=== PATIENT | female | born 1995 | race Caucasian/White ===

== ENCOUNTER 2017-11-08 20:35 | Outpatient (CLI) | payer OTHER, SELFPAY ==
[2017-11-08 20:59] VITALS: BMI 21.9
--- NOTE | 2017-11-09 09:09 | OB.TRI.NOTE ---
History of Present Illness Date of Service: 11/08/17 Was patient seen by the physician?: No Reason For Visit: r/o LABOR Date of Service: 11/08/17 Final JOHN: 01/17/18 Final JOHN Source: LMP Gestational age: 30 Weeks and 1 Days History of Present Illness: 22yo @ 30 wks gestation c/o occasional contractions- was sent from [facility]- has not had PNC with [facility]. Denies Vb, LOF. Allergies No Known Allergies Allergy (Verified 11/08/17 21:01) NST - FHR Rate Baby A Baseline: 135 Variability:: Moderate Accelerations:: 15 x 15 Decelerations:: None NST Reactive:: Yes, Appropriate for gestational age FHR Category:: Category I Uterine Activity:: occasional Impression/Plan 22yo @ 30.1 weeks, NOT IN LABOR 1) vaginal exam unchanged since being checked by boring mill set up operator vertical last visit 1cm/thick/high 2) dc home f/u with [facility] or [facility] if desired
--- NOTE | 2017-11-09 09:12 | OB.TRI.HP_ITS ---
History of Present Illness Date of Service: 11/08/17 Was patient seen by the physician?: No Reason For Visit: r/o LABOR Date of Service: 11/08/17 Final JOHN: 01/17/18 Final JOHN Source: LMP Gestational age: 30 Weeks and 1 Days History of Present Illness: 22yo @ 30 wks gestation c/o occasional contractions- was sent from [facility]- has not had PNC with [facility]. Denies Vb, LOF. Allergies No Known Allergies Allergy (Verified 11/08/17 21:01) NST - FHR Rate Baby A Baseline: 135 Variability:: Moderate Accelerations:: 15 x 15 Decelerations:: None NST Reactive:: Yes, Appropriate for gestational age FHR Category:: Category I Uterine Activity:: occasional Impression/Plan 22yo @ 30.1 weeks, NOT IN LABOR 1) vaginal exam unchanged since being checked by rip saw operator last visit 1cm/thick/ high 2) dc home f/u with [facility] or [facility] if desired
== END 2017-11-08 23:00 | disposition home or self-care (01) ==
LOC: WPOUT 20:46 → WP 20:46
PROVIDERS: Family Provider Family Medicine; PCP Family Medicine; Visit Provider Obstetrics & Gynecology
DX: O47.03 False labor before 37 completed weeks of gestation, third trimester (principal); Z3A.30 30 weeks gestation of pregnancy
CPT/HCPCS: 59025; 59050; 99218; G0378

== ENCOUNTER 2017-12-17 09:50 | Inpatient (IN) | payer SELFPAY ==
[2017-12-17 10:19] VITALS: BMI 23.5
[2017-12-17] MEDS: Lactated Ringers 1,000 ML 50 ML IV (10:30)
[2017-12-17 10:51] LABS: Hematocrit 38.7 % (37-47); Mean Corp Hgb Conc 33.6 g/gl (32-36); Mean Corpuscular Hgb 27.4 pg (27.0-32.0); Mean Corpuscular Volume 81.6 fL (81-99); Mean Platelet Vol. 9.2 fl (6.2-12.0); Platelet Count 253 K/mm3 (150-450); RBC Distribution Width SD 42.1 fl (35.1-43.9); Red Blood Count 4.74 M/mm3 (4.2-5.4); White Blood Count 11.5 K/mm3 (4.4-11.0)
[2017-12-17 10:54] LABS: Scan Indicated on CBC? Y/N NO
[2017-12-17] MEDS: Oxytocin 30 units/NS 500 ml 30 UNITS/500 ML IV.SOLN 334 UNITS IV (12:35)
[2017-12-17] MEDS: Oxytocin 30 units/NS 500 ml 30 UNITS/500 ML IV.SOLN 167 UNITS IV (13:05)
[2017-12-17 13:25] LABS: Group B Strep DNA By PCR Negative (Negative)
[2017-12-17 13:26] LABS: Internal Control PASS; Probe Check PASS; Specimen Processing Control PASS
[2017-12-17 14:39] VITALS: BP 128/67; PULSE 86; RESP 16; TEMP 36.7; O2SAT 99
[2017-12-17 16:45] VITALS: BP 122/69; PULSE 98; RESP 15; TEMP 37; O2SAT 97
--- NOTE | 2017-12-17 18:44 | PCM.HP.OB ---
- Problem List (1) labor Status: Acute (2) Abnormal ultrasonic finding on screening of mother Status: Acute History Date of Admission: 12/17/17 Final JOHN: 01/17/18 Final JOHN Source: LMP Gestational age: 35 Weeks and 4 Days History of this : This is a 22 year-old, , at 35 weeks 4 DAYS gestational age presents with PTL. she had an abnormal ultrasound this that had echogenic bowel and bilateral mild hydronephrosis but otherwise had a normal . she has been seen at [facility]. Allergies No Known Allergies Allergy (Verified 11/08/17 21:01) Home Medications: Home Medications Vit Calc,Iron,Folic [ Vitamins] 12/17/17 Smoking Status: Never smoker Alcohol: None Number of Fetus(es): 1 Heart Tracin moderate vairbility reactive no decels cat I tracing TOCO Analysis: q 2-4 History Past Pregnancies: Past Pregnancies Delivery Date Name GA/Weeks Outcome Route Weight Gender Labor Length Anesthesia Delivery Location Provider FOB 39 term male Labs: Mom's Microbiology 12/17/17 Unknown Genital vaginal Group B Streptococcus Culture - Pending Mom's Problem List Problem Status Onset Code labor Acute O60.00 Abnormal ultrasonic finding on screening of mother Acute O28.3 Mom's Labs & Results 12/17/17 12/17/17 12/17/17 10:15 10:30 10:30 WBC 11.5 H RBC 4.74 Hgb 13.0 Hct 38.7 MCV 81.6 MCH 27.4 MCHC 33.6 RDW 14.0 RDW Differential 42.1 Plt Count 253 MPV 9.2 Chlam trachomat DNA PCR Pending N.gonorrhoeae DNA (PCR) Pending Group B Strep DNA Negative Specimen Comment Not Reportable Blood Type AB POSITIVE Antibody Screen NEGATIVE Course Did the patient receive Yes care? Labs Blood Type: AB RH: POSITIVE Rubella status Immune HbSAg Negative Date Done: 05/14/17 Chlamydia Not Done Gonorrhea Not Done HIV/AIDS Non-Reactive Group B Strep: Collected on Admission Other Lab Procedures/Results/ Penicillan ordered Comments: Current Obstetrical History Gestational Diabetes No Incompetent Cervix No Infertility No IUGR No Macrosomia No Hypertension/Pre-eclampsia No Placenta Previa/Abruption No PTL/PROM No Uterine anomaly No Oligohydramnios No Polyhydramnios No Past Medical History Asthma No Diabetes No Hypertension No Heart disease No Mitral valve prolapse No Neurologic/Seizure disorder/ Yes Migraines Kidney disease No Liver disease No Varicosities Yes Clotting disorders/Hx of DVT No Thyroid Dysfunction No Other medical diseases No Psychiatric disorders No Major trauma Yes: possible concussion at 9 yrs old Abnormal PAP smear No Sleep apnea No Mammogram in the last 2 years Yes: August 2017 Social History Marital Status: Alleged father Hansel Wolf Smoking No Smoking Status Never smoker Expected Delivery Method: Spontaneous Vaginal Review of Systems Constitutional: Denies: Fever, Malaise Eyes: Denies: Blurred vision, Vision Change HEENT: Denies: Head Aches, Visual Changes Cardiovascular: Denies: Chest Pain, Palpitations Respiratory: Denies: Cough, Shortness of Breath, Wheezing Gastrointestinal: Denies: Abdominal Pain, Diarrhea, Nausea, Vomiting Genitourinary: Denies: Dysuria, Hematuria Musculoskeletal: Denies: Joint Pain, Muscle pain Skin: Denies: Lesions, Rash Neurological: Denies: Blurred vision, Focal weakness, Headaches Psychiatric: Denies: Anxiety, Depression Endocrine: Denies: Heat/ Cold Intolerance Hematologic/ Lymphatic: Denies: Easy Bruising, Easy Bleeding Physical Exam Vitals: Vital Signs Temp Pulse Resp BP Pulse Ox 98.6 F 98 15 122/69 H 97 12/17/17 16:45 12/17/17 16:45 12/17/17 16:45 12/17/17 16:45 12/17/17 16:45 General: Alert, Cooperative, No apparent distress HEENT: Atraumatic, Normocephalic. Negative for: Thyromegaly, Lymphadenopathy Cardiovascular: Regular rate Lungs: Normal air movement Abdomen: Soft, Non Tender, Gravid Neurological: Deep Tendon Reflexes 2+/4 and Symmetrical, Neuro grossly intact. Negative for: Clonus GEAR CUTTER: Normal external genitalia. Negative for: Vulvar lesions Estimated gestational size: Appropriate for gestational size Presentation: Cephalic Cervix Dilation (cm): 5.5 Assessment/Plan All Active Problems labor (Acute) Abnormal ultrasonic finding on screening of mother (Acute) This is a 22 year-old, G2P!, at 35 weeks 4d gestational age presents IAL ptl exp mgt. arom clear. amp for gbs prophylaxis
--- NOTE | 2017-12-17 19:05 | PCM.OB.VAG ---
- Problem List (1) labor Status: Acute (2) Abnormal ultrasonic finding on screening of mother Status: Acute Vaginal Delivery Maternal Presentation: Active Labor ptl presented IAL Amniotic Membrane Rupture Type: Spontaneous at home Amniotic Fluid Description: Clear Final JOHN: 01/17/18 Gestational age: 35 Weeks and 4 Days Date of Procedure: 12/17/17 Pre-Operative Diagnosis: ptl Post-Operative Diagnosis: ptd Surgery/ Procedure Performed: Spontaneous Vaginal Delivery Type of Anesthesia: None Description of Procedure: Patient began pushing and delivered the head in the TERRANCE presentation. The head was delivered atraumatically. The anterior and posterior shoulders delivered without complication followed by the rest of the and the was placed on the maternal abdomen. Delayed cord clamping was employed for approximately 60 seconds. Cord was clamped and cut and gentle traction was applied to the cord and the placenta delivered spontaneously immediately following it was noted to be intact with three-vessel cord. The perineum and vagina were inspected and noted to have no laceration. EBL was 100 cc. Patient and infant tolerated delivery well. Presentation: TERRANCE Placental Delivery Description: Spontaneous Placenta Disposition: [facility] Cord Entanglement: None Estimated Blood Loss: 100 Infant A gender: Male (1 minute): 8 - wt 5 12 ounces (5 minute): 9 Episiotomy Description: None Laceration: None Medications given after delivery: IV Pitocin Complications: None
[2017-12-17 19:50] VITALS: BP 131/75; PULSE 80; RESP 18; TEMP 37.2
[2017-12-17] MEDS: Acetaminophen 500 MG Tablet 1000 MG PO (19:56)
[2017-12-18] VITALS: BP 110/65; PULSE 80; RESP 16; TEMP 37
[2017-12-18] MEDS: Acetaminophen 500 MG Tablet 1000 MG PO (03:17)
[2017-12-18 03:20] VITALS: BP 110/60; PULSE 80; RESP 16; TEMP 36.8
[2017-12-18 05:28] LABS: Chlamydia Trachomatis by PCR Negative (Negative); Neisserai gonorrhoeae by PCR Negative (Negative); Probe Check PASS; Sample Adequacy Control PASS; Specimen Processing Control PASS
[2017-12-18 08:45] VITALS: BP 122/68; PULSE 82; RESP 24; TEMP 36.4; O2SAT 98
[2017-12-18 14:20] VITALS: BP 115/68; PULSE 79; TEMP 36.6; O2SAT 98
[2017-12-18 20:55] VITALS: BP 119/69; PULSE 95; RESP 18; TEMP 36.4; O2SAT 97
--- NOTE | 2017-12-18 21:20 | PCM.PN.OB ---
Patient Problems: Active and Suspected Problems labor (Acute) Abnormal ultrasonic finding on screening of mother (Acute) Subjective: doing well no complaints - Physical Exam General: Alert, Oriented x3 Vital Signs Temp Pulse Resp BP Pulse Ox 97.8 F 79 24 H 115/68 98 12/18/17 14:20 12/18/17 14:20 12/18/17 08:45 12/18/17 14:20 12/18/17 14:20 Oxygen Delivery Method Room Air Weight: 132 lb 15.02 oz Body Mass Index (BMI) 23.5 Intake and Output for Last 24 Hours 12/16/17 12/17/17 12/18/17 23:59 23:59 23:59 Output Total 750 / 750 Balance -750 / -750 Microbiology Past 72 Hours 12/17/17 Unknown Group B Streptococcus Culture - Preliminary Genital vaginal Laboratory Tests Past 24 Hrs 12/17/17 10:15 Chlam trachomat DNA PCR Negative N.gonorrhoeae DNA (PCR) Negative Medical Necessity - Tobacco Use Smoking Status: Never smoker Assessment/Plan All Active Problems labor (Acute) Abnormal ultrasonic finding on screening of mother (Acute) s/p PPD # 1 1. routine post delivery care 2. breast feeding- support given 3. rh positive
--- NOTE | 2017-12-19 01:30 | NURSING ---
Infant HR and Pulse ox dropped into 60s when in nursery for carseat challenge. Notified by nursery RN, apron trimmer aware. to remain in nursery to be monitored. Made pt aware of plan at this time.
[2017-12-19 02:40] VITALS: BP 118/65; PULSE 62; RESP 18; TEMP 36.4; O2SAT 98
--- NOTE | 2017-12-19 08:22 | PCM.PN.OB ---
Patient Problems: Active and Suspected Problems labor (Acute) Abnormal ultrasonic finding on screening of mother (Acute) Subjective: NO SOB, CP. Doing well. Pain controlled-OTC meds - Physical Exam General: Alert, Oriented x3 Abdomen: Soft, Non Tender, - - FF below U Vital Signs Temp Pulse Resp BP Pulse Ox 97.5 F L 62 18 118/65 98 12/19/17 02:40 12/19/17 02:40 12/19/17 02:40 12/19/17 02:40 12/19/17 02:40 Oxygen Delivery Method Room Air Weight: 132 lb 15.02 oz Body Mass Index (BMI) 23.5 Intake and Output for Last 24 Hours 12/17/17 12/18/17 12/19/17 23:59 23:59 23:59 Output Total 750 / 750 Balance -750 / -750 Microbiology Past 72 Hours 12/17/17 Unknown Group B Streptococcus Culture - Preliminary Genital vaginal Medical Necessity - Tobacco Use Smoking Status: Never smoker Assessment/Plan All Active Problems labor (Acute) Abnormal ultrasonic finding on screening of mother (Acute) Routine care Baby special care-DC hotel status today.
--- NOTE | 2017-12-19 08:24 | PCM.DCVAG ---
Additional Instructions: If you experience any of the following, contact your healthcare provider. Bleeding that soaks a pad every hour for 2 hours Fever 100.4 or higher Unrelieved incision or abdominal pain Swelling, redness, discharge or bleeding from your incision or episiotomy site Your incision begins to separate Problems urinating (including inability to urinate or burning while urinating). Visual changes Severe headache Flu-like symptoms Pain or redness in one of both of your breasts Pain, warmth, tenderness or swelling in your legs, especially the calf area Frequent nausea and vomiting Symptoms of depression or anxiety If you experience any of the following, call 911 or go to the nearest Emergency Room. Chest pain Problems breathing Seizure activity Partial or complete paralysis of a body part, slurred speech, weakness or drooping of the face, or a sudden inability to walk or hold your balance Allergies/Adverse Reactions: Allergies No Known Allergies Allergy (Verified 11/08/17 21:01) Medications to take at Discharge Vit Calc,Iron,Folic [ Vitamins] 12/17/17 Primary Care Physician: Harpreet Coleman DO [Primary Care Provider] - Test Results: Test results from this visit will be discussed in further detail at your follow-up appointment, if applicable.
[2017-12-19 09:35] VITALS: BP 121/69; PULSE 93; RESP 20; TEMP 36.6; O2SAT 96
[2017-12-19 15:15] VITALS: BP 122/78; PULSE 98; TEMP 36.6; O2SAT 97
== END 2017-12-19 18:00 | disposition home or self-care (01) | DRG 775 ==
LOC: WPOUT 09:50 → WP 12:36
PROVIDERS: Admitting Provider Obstetrics & Gynecology; Family Provider Family Medicine; PCP Family Medicine; Visit Provider Obstetrics & Gynecology
DX: O60.14X0 Preterm labor third trimester with preterm delivery third trimester, not applicable or unspecified (principal); O42.013 Preterm premature rupture of membranes, onset of labor within 24 hours of rupture, third trimester; O28.3 Abnormal ultrasonic finding on antenatal screening of mother; Z3A.35 35 weeks gestation of pregnancy; Z37.0 Single live birth
CPT/HCPCS: 59025; 59050; 85027; 86850; 86900; 87081; 87491; 87591; 87653; 99218; J7120; G0378

== ENCOUNTER → 2021-03-09 14:28 | Outpatient (CLI) | payer OTHER, SELFPAY | PROVIDERS: PCP Family Medicine; Referring Provider Obstetrics & Gynecology; Visit Provider Obstetrics & Gynecology | DX: R69 Illness, unspecified (principal) | CPT/HCPCS: 36415; 86762 ==

== ENCOUNTER → 2021-03-23 12:24 | Outpatient (CLI) | payer SELFPAY, OTHER ==
--- NOTE | 2021-03-23 12:28 | US_ITS ---
STUDY: SECOND AND THIRD TRIMESTER OBSTETRICAL ULTRASOUND - LIMITED REASON FOR EXAM: Female, 26 years old growth LMP: 07/29/2020. PRIOR ULTRASOUND: None. TECHNIQUE: Transabdominal TECHNICAL QUALITY: Adequate. FINDINGS: There is a single intrauterine fetus. The fetus is in a cephalic presentation. There is demonstrated cardiac activity with a heart rate of 140 bpm. There is a normal amniotic fluid volume. The largest amniotic fluid pocket measures 5.6 cm. The amniotic fluid index (MIGUEL ANGEL) is 15.4 cm. The placenta is anterior in location and is not low lying. There are Grade 1 placental changes. The cervix measures 3.2 cm in length. BIOMETRY: BPD: 8.4 cm: 33 weeks, 5 days HC: 30.4 cm: 33 weeks, 5 days AC: 30.7 cm: 34 weeks, 4 days FL: 6.4 cm: 33 weeks, 0 days Age by LMP: 33 weeks, 6 days. JOHN by LMP: 05/05/2021. age by current US: 33 weeks, 2 days. JOHN by current US: 05/09/2021. Estimated weight: 2376 grams, +/- 356 grams, 54 percentile. US/OB Limited With Biometrics IMPRESSION: Single live intrauterine gestation with a mean gestational age of 33 weeks and 2 days. Electronically Signed: Bud Dalton MD at 12:42 EST , Service support ,
== END ==
PROVIDERS: PCP Family Medicine; Referring Provider Obstetrics & Gynecology; Visit Provider Obstetrics & Gynecology
DX: O09.30 Supervision of pregnancy with insufficient antenatal care, unspecified trimester (principal); Z3A.00 Weeks of gestation of pregnancy not specified
CPT/HCPCS: 76816

== ENCOUNTER → 2021-04-12 | Outpatient (CLI) | payer SELFPAY | END | disposition home or self-care (01) | LOC: LABSPEC 04-16 06:42 | PROVIDERS: PCP Family Medicine; Referring Provider Obstetrics & Gynecology; Visit Provider Obstetrics & Gynecology | DX: O09.90 Supervision of high risk pregnancy, unspecified, unspecified trimester (principal); Z3A.00 Weeks of gestation of pregnancy not specified | CPT/HCPCS: 87081 ==

== ENCOUNTER 2021-04-27 14:45 | Outpatient (CLI) | payer OTHER, SELFPAY ==
[2021-04-27] VITALS (8 sets, daily range): BP systolic 123–135; BP diastolic 67–80; PULSE 78–92; TEMP 36.7; BMI 27.3
[2021-04-27 15:16] LABS: Hemoglobin 12.7 g/dL (12.0-15.0); Mean Corp Hgb Conc 34.3 g/dL (32-36); Mean Corpuscular Hgb 29.2 pg (27.0-32.0); Mean Corpuscular Volume 85.1 fL (81-99); Mean Platelet Vol. 9.1 fl (6.2-12.0); Platelet Count 307 K/mm3 (150-450); RBC Distribution Width CV 14.1 % (11.6-14.6); RBC Distribution Width SD 43.9 fl (35.1-43.9); Red Blood Count 4.35 M/mm3 (4.2-5.4)
[2021-04-27 15:25] LABS: Protein, Urine (Random) < 6.0 mg/dL (<11.9); Protein:Creat Ratio 305 mg/g CRE (0-200)
[2021-04-27 15:32] LABS: AST(SGOT) 21 U/L (15-37); Alanine Aminotransfer ALT/SGPT 26 U/L (13-56); Creatinine, Serum 0.63 mg/dL (0.55-1.02); EST Glomerular Filtration Rate 121 mL/min (>60); Est Glom Filt Rate - Afr Amer 147 mL/min (>60); Uric Acid 4.7 mg/dL (2.6-6.0)
--- NOTE | 2021-04-27 17:06 | OB.TRI.HP_ITS ---
HPI - General HPI Narrative LUDIVINA MARIO, is a 26 @ 38 weeks 6 days who was sent to l&D due to some elevated blood pressures in the office. She denies headaches, blurry vision or epigastric pain. She has been on L&D now for a few hours and bp's are normal Maternal Data Information JOHN Calculator Estimated Delivery Date Method Current WG Current Estimate 05/05/21 LMP (Certain) 38w 6d PFSH PFSH Home Medications prenat.vits,festus,[id number] [ Vitamins] 12/17/17 [History Last Taken 12/16/17 21:00] B12 04/27/21 [History Last Taken Unknown] Blodgett 3 04/27/21 [History Last Taken Unknown] Vitamin D3 04/27/21 [History Last Taken Unknown] calcium 04/27/21 [History Last Taken Unknown] vitamin E 04/27/21 [History Last Taken Unknown] Allergy/AdvReac Type Severity Reaction Status Date / Time gluten Allergy Intermediate Other Verified 04/27/21 15:20 Family History Mother Hypertension Phlebitis Varicosities of leg Uncle Parkinson disease Social History Smoking Status: Never smoker alcohol intake: never substance use type: does not use additional social history: - Hansel History 3 Elective abortions Hx Para 2 Spontaneous abortions Hx # Term Pregnancies 1 Ectopic pregnancies Hx # Pregnancies 1 Multiple births # of living children 2 Past Pregnancies Del. Date Name GA/Weeks Outcome Route Bth Weight Infant Gen Labor Lgth Anesthesia [facility] Provider FOB 12/02/16 Jarred 39 live - full term 7lbs 9oz 15.5 hour s none 12/17/17 Juan 35 live - 5lbs 12oz Male 6 hours no ne [facility] [place] Delivery Date: 12/02/16 2 degree tear Lidia Batista Delivery Date: 12/17/17 PTL. abnormal US this - echogenic bowel & B/L mild hydronephrosis but otherwise normal ; Baby in NICU x3 weeks Lidia Batista Visit Details Expected Delivery Route/Plan Labor Preferences- CB/BF classes: [] labor support person: [] labor intervention preferences: [] pain management options preferred: [] cut cord/dad catch: [] : [] PP control planned: [] discussed possible routes of delivery and associated risks: [] special requests: [] Plans Covid status: [] Flu vaccine: [] Tdap vaccine: [] Rhogam: [] LARC form signed: [] Problem list reviewed and updated with the most current plan of care details and appropriate orders placed. Relevant counseling for the gestational age provided. Continue routine care and follow up unless otherwise noted in visit notes/problem list details OB Flowsheet Initial Weight: Not Recorded Date -?-?-?-?-?-?-?-?-?-?-?-?- EGA Weight BP Urine Prot -?-?-?-?-?-?-?-?-?-?-?-?- Glucose FHR FuHt Pres Dilation -?-?-?-?-?-?-?-?-?-?-?-?- Effaced St Visit Note 03/09/21 -?-?-?-?-?-?-?-?-?-?-?-?- 31w 6d 140 lb 2 oz 130/68 -?-?-?-?-?-?-?-?-?-?-?-?- 32 -?-?-?-?-?-?-?-?-?-?-?-?- JV- new transfer [facility]. has 20 week ultrasound that is consistent with LMP. john is 05/05/2021. normal labs, needs rubella and ordering growth scan 03/23/21 -?-?-?-?-?-?-?-?-?-?-?-?- 33w 6d 149 lb 128/72 -?-?-?-?-?-?-?-?-?-?-?-?- 33 0 -?-?-?-?-?-?-?-?-?-?-?-?- JV- no lof, vagi nal bleeding, or dec fm. pt has erythema and discharge on exam consistent with yeast .she is having irregular mild contractions rx for diflucan sent to pharmacy. she is still using progesterone cream. uncertain of effectiveness at this time 04/06/21 -?-?-?-?-?-?-?-?-?-?-?-?- 35w 6d 157 lb 2 oz 126/78 Nega tive -?-?-?-?-?-?-?-?-?-?-?-?- Negative 137 35 Cephalic 1 -?-?-?-?-?-?-?-?-?-?-?-?- 50 -3 JV- pt is still having infrequent contractions. ptl precautions discussed 04/12/21 -?-?-?-?-?-?-?-?-?-?-?-?- 36w 5d 158 lb 6 oz 138/80 Nega tive -?-?-?-?-?-?-?-?-?-?-?-?- Negative 143 37 Cephalic 1 -?-?-?-?-?-?-?-?-?-?-?-?- 50 -2 JV- bedsid e ultrasound today to confirm normal leonard (17), vtx. GBS collected 04/19/21 -?-?-?-?-?-?-?-?-?-?-?-?- 37w 5d 162 lb 6 oz 132/68 Nega tive -?-?-?-?-?-?-?-?-?-?-?-?- Negative 151 38 Cephalic 1 -?-?-?-?-?-?-?-?-?-?--?-?- 50 -2 -No Vb, LOF. No reg CTX. Good FM. 04/27/21 -?-?-?-?-?-?-?-?-?-?-?-?- 38w 6d 164 lb 8 oz 159/86 Nega tive -?-?-?-?-?-?-?-?-?-?-?-?- Negative 145 39 Cephalic -?-?-?-?-?-?-?-?-?-?-?-?- JV- no blurry v ision, headache, RUQ pain, or epigastric pain. pt states that she does have some head pressure and feels uncomfortable due to only. Sending to l&D for monitoring and PIH labs. 04/27/21 -?-?-?-?-?-?-?-?-?-?-?-?- 38w 6d 164 lb 7.437 oz 135/ 77 130/77 131/80 128/67 128/72 128/69 123/69 -?-?-?-?-?-?-?-?-?-?-?-?- -?-?-?-?-?-?-?-?-?-?-?-?- ROS Constitutional Constitutional: Reports systems reviewed and no addt'l complaints, except as documented Gastrointestinal Gastrointestinal: Denies bloating, constipation, cramping, diarrhea, nausea or vomiting Genitourinary Genitourinary: Reports other Details: Denies vaginal odor, vaginal bleeding, or vaginal discharge ; Denies difficulty urinating or flank pain Physical Exam HEENT normocephalic Resp normal respiratory effort and normal air movement no CVA tenderness Amniotic Fluid: other cx is 1/thick/high/posterior Extremity normal to inspection General Extremity: edema bilateral (trace ) NST FHR Rate Baby A Baseline: 140 Variability:: Moderate Accelerations:: 15 x 15 Decelerations:: None NST Reactive:: Yes FHR Category:: Category I Assessment & Plan (1) Transient hypertension of : COMMENT: pressures normal in triage and normal pih labs PLAN: dc to home. rto in one week Charges/Coding Multi Select Codes Visit Charges Office Visit/Consults: 46379 OV L3 Est Urinary/Genital Urinary/Genital CPT Codes: 88558-65 non-stress test Interp
== END 2021-04-27 23:59 | disposition home or self-care (01) ==
LOC: WPOUT 14:46 → WP 14:46
PROVIDERS: PCP Family Medicine; Visit Provider Obstetrics & Gynecology
DX: O16.3 Unspecified maternal hypertension, third trimester (principal); Z3A.38 38 weeks gestation of pregnancy
CPT/HCPCS: 36415; 59025; 59050; 82565; 82570; 84156; 84450; 84460; 84550; 85027; 99218; G0378

== ENCOUNTER 2021-04-30 17:45 | Inpatient (IN) | payer SELFPAY, OTHER ==
[2021-04-30] VITALS (9 sets, daily range): BP systolic 131–142; BP diastolic 71–100; PULSE 91–100; TEMP 36.2–36.5; O2SAT 98–99; BMI 28.2
--- NOTE | 2021-04-30 17:59 | HP.PCM.OB_ITS ---
HPI - General General Date of Admission: 04/30/21 HPI Narrative LUDIVINA MARIO, is a 26 y/o @ 39 weeks 2 days who presents to L&D for IOL due to mild pre-eclampsia (based on pr:cr ratio of 305 and transient elevations is blood pressure) Maternal Data Information JOHN Calculator Estimated Delivery Date Method Current WG Current Estimate 05/05/21 LMP (Certain) 39w 2d PFSH PFSH Home Medications prenat.vits,festus,clr-lexd-newvt [ Vitamins] 12/17/17 [History Last Taken 12/16/17 21:00] B12 04/27/21 [History Last Taken Unknown] [place] 3 04/27/21 [History Last Taken Unknown] Vitamin D3 04/27/21 [History Last Taken Unknown] calcium 04/27/21 [History Last Taken Unknown] vitamin E 04/27/21 [History Last Taken Unknown] Allergy/AdvReac Type Severity Reaction Status Date / Time gluten Allergy Intermediate Other Verified 04/27/21 15:20 Family History Mother Hypertension Phlebitis Varicosities of leg Uncle Parkinson disease Social History Smoking Status: Never smoker alcohol intake: never substance use type: does not use additional social history: - Hansel History 3 Elective abortions Hx Para 2 Spontaneous abortions Hx # Term Pregnancies 1 Ectopic pregnancies Hx # Pregnancies 1 Multiple births # of living children 2 Past Pregnancies Del. Date Name GA/Weeks Outcome Route Bth Weight Gen Labor Lgth Anesthesia Del [facility] Provider FOB 12/02/16 Jarred 39 live - full term 7lbs 9oz 15.5 hour s none 12/17/17 Juan 35 live - 5lbs 12oz Male [address] [facility] Marcanthony Delivery Date: 12/02/16 2 degree tear Lidia Batista Delivery Date: 12/17/17 PTL. abnormal US this - echogenic bowel & B/L mild hydronephrosis but otherwise normal ; Baby in NICU x3 weeks Lidia Batista Visit Details Expected Delivery Route/Plan Labor Preferences- CB/BF classes: [] labor support person: [] labor intervention preferences: [] pain management options preferred: [] cut cord/dad catch: [] : [] PP control planned: [] discussed possible routes of delivery and associated risks: [] special requests: [] Plans Covid status: [] Flu vaccine: [] Tdap vaccine: [] Rhogam: [] LARC form signed: [] Problem list reviewed and updated with the most current plan of care details and appropriate orders placed. Relevant counseling for the gestational age provided. Continue routine care and follow up unless otherwise noted in visit notes/problem list details OB Flowsheet Initial Weight: Not Recorded Date -?-?-?-?-?-?-?-?-?-?-?-?- EGA Weight BP Urine Prot -?-?-?-?-?-?-?-?-?-?-?-?- Glucose FHR FuHt Pres Dilation -?-?-?-?-?-?-?-?-?-?-?-?- Effaced St Visit Note 03/09/21 -?-?-?-?-?-?-?-?-?-?-?-?- 31w 6d 140 lb 2 oz 130/68 -?-?-?-?-?-?-?-?-?-?-?-?- 32 -?-?-?-?-?-?-?-?-?-?-?-?- JV- new transfer [facility]. has 20 week ultrasound that is consistent with LMP. john is 05/05/2021. normal labs, needs rubella and ordering growth scan 03/23/21 -?-?-?-?--?-?-?-?-?-?-?-?- 33w 6d 149 lb 128/72 -?-?-?-?-?-?-?-?-?-?-?-?- 33 0 -?-?-?-?-?-?-?-?-?-?-?-?- JV- no lof, vagi nal bleeding, or dec fm. pt has erythema and discharge on exam consistent with yeast .she is having irregular mild contractions rx for diflucan sent to pharmacy. she is still using progesterone cream. uncertain of effectiveness at this time 04/06/21 -?-?-?-?-?-?-?-?-?-?-?-?- 35w 6d 157 lb 2 oz 126/78 Nega tive -?-?-?-?-?-?-?-?-?-?-?-?- Negative 137 35 Cephalic 1 -?-?-?-?-?-?-?-?-?-?-?-?- 50 -3 JV- pt is still having infrequent contractions. ptl precautions discussed 04/12/21 -?-?-?-?-?-?-?-?-?-?-?-?- 36w 5d 158 lb 6 oz 138/80 Nega tive -?-?-?-?-?-?-?-?-?-?-?-?- Negative 143 37 Cephalic 1 -?-?-?-?-?-?-?-?-?-?-?-?- 50 -2 JV- bedsid e ultrasound today to confirm normal leonard (17), vtx. GBS collected 04/19/21 -?-?-?-?-?-?-?-?-?-?-?-?- 37w 5d 162 lb 6 oz 132/68 Nega tive -?-?-?-?-?-?-?-?-?-?-?-?- Negative 151 38 Cephalic 1 -?-?-?-?-?-?-?-?-?-?-?-?- 50 -2 MH-No Vb, LOF. No reg CTX. Good FM. 04/27/21 -?-?-?-?-?-?-?-?-?-?-?-?- 38w 6d 164 lb 8 oz 159/86 Nega tive -?-?-?-?-?-?-?-?-?-?-?-?- Negative 145 39 Cephalic -?-?-?-?-?-?-?-?-?-?-?-?- JV- no blurry v ision, headache, RUQ pain, or epigastric pain. pt states that she does have some head pressure and feels uncomfortable due to only. Sending to l&D for monitoring and PIH labs. 04/27/21 -?-?-?-?-?-?-?-?-?-?-?-?- 38w 6d 164 lb 7.437 oz 135/ 77 130/77 131/80 128/67 128/72 128/69 123/69 -?-?-?-?-?-?-?-?-?-?-?-?- -?-?-?-?-?-?-?-?-?-?-?-?- 04/30/21 -?-?-?-?-?-?-?-?-?-?-?-?- 39w 2d -?-?-?-?-?-?-?-?-?-?-?-?- -?-?-?-?-?-?-?-?-?-?-?-?- ROS Constitutional Constitutional: Denies change in weight, fatigue, fever(s), headache(s), poor appetite or weakness Eyes Eyes: Denies blurry vision, change in vision, seeing flashes or spots in vision ENT HEENT: Denies dizziness, headache(s), loss taste/smell or sore throat Cardiovascular Cardiovascular: Denies chest pain, dizziness, dyspnea, irregular heart rhythm, leg edema, palpitations, rapid heart rate or vomiting Respiratory/Chest Respiratory/Chest: Denies chest tightness, cough, dyspnea or breast pain Gastrointestinal Gastrointestinal: Denies abdominal pain, anorexia, constipation, cramping, diarrhea, hemorrhoids, vomiting or weight changes Genitourinary Genitourinary: Denies dysuria, flank pain, genital lesions, genital pain, urinary frequency or urinary urgency Musculoskeletal Musculoskeletal: Denies back pain, difficulty walking, joint pain, limited range of motion, muscle cramps or numbness Integumentary Integumentary: Denies lesions or unusual bruising Neurologic Neurologic: Denies abnormal movements, abnormal speech, dizziness, numbness, seizure-like activity or syncope Psychiatric Psychiatric: Denies anxiety, behavioral changes, change in appetite, change in libido, cognitive impairment, confusion, depression, difficulty concentrating, hallucinations or suicidal thoughts Endocrine Endocrinology: Denies excessive sweating, polydipsia or polyuria Hematologic/Lymphatic Hematologic/Lymphatic: Denies easy bleeding, easy bruising or lymphadenopathy Allergic/Immunologic Allergic/Immunologic: Denies itchy eyes, lip swelling, seasonal rhinorrhea, rhinitis, throat swelling, tongue swelling, eczemia, wheezing or asthma Physical Exam Const alert, oriented x3, no apparent distress and healthy appearing General Appearance: cooperative; Negative for anxious HEENT normocephalic Face and Sinus: normal facial exam Eyes EOMs intact bilaterally and no scleral icterus General Eye: normal appearance of both eyes Neck full ROM and supple Lymph Lymphatic: no lymphadenopathy noted Chest Chest: abnormal inspection of the chest Resp normal respiratory effort Effort and Inspection: able to speak in complete sentences Cardio regular rate GI soft to palpation and non-tender Inspection: gravid Palpation: soft; Negative for tender external exam normal Back/Spine no CVA tenderness Extremity normal to inspection, full ROM and no clubbing, cyanosis or edema General Extremity: Negative for calf tenderness or edema Skin Lesions: no lesions Rashes: no rashes Psych mental status grossly normal Labs Labs Labs: Blood Type AB POSITIVE Antibody Screen NEGATIVE Hct 37.0 % (37-47) Hgb 12.7 g/dL (12.0-15.0) Pap Smear Negative Obstetrics US C.trachomatis DNA (PCR) Negative (Negative) Group B Strep DNA Negative (Negative) Rhogam given: No Assessment & Plan (1) Late care affecting : QUALIFIERS: Trimester: third trimester Qualified Code(s): O09.33 - Supervision of with insufficient care, third trimester (2) Cystocele affecting : QUALIFIERS: Trimester: third trimester Qualified Code(s): O34.83 - Maternal care for other abnormalities of pelvic organs, third trimester; N81.10 - Cystocele, unspecified COMMENT: grade 2 (3) Supervision of high risk , antepartum: COMMENT: JOHN: 05/05/21 PC: Jarred, Spouse: Hansel (4) H/O depression, currently : (5) H/O delivery, currently : COMMENT: 35 weeks not on bj or progesterone. no document of baseline CL measurement. (6) : QUALIFIERS: Weeks of gestation: 38 weeks Qualified Code(s): Z3A.38 - 38 weeks gestation of COMMENT: Anatomy done 12/20/20; Urine cx, CBC, GCT, T&S, GC/C done NEEDS RUBELLA,RPR,HEPB,HEPC,HIV,TOX; GBS NEG (7) Mild pre-eclampsia: PLAN: Patient presents IOL, plan management for with pitocin/AROM. Pain management: plans epidural. GBS negative. Management of any complications: none I have reviewed the [facility] and made any clinically relevant updates. Charges/Coding Multi Select Codes Visit Charges Visit Charges: 02713 Init Hosp L3
[2021-04-30] MEDS: 0.9% Saline Lock 10 ML Syringe IV (19:30)
[2021-04-30] MEDS: Lactated Ringers 1,000 ML 50 ML IV (19:40)
[2021-04-30 19:50] LABS: Bacteria 0 SEEN /hpf (None Seen); Mucous, Urine 0 SEEN /hpf (<or=2+); Red Blood Cells-Urine 0 SEEN /hpf (0-5); White Blood Cells 0 SEEN /hpf (0-5)
[2021-04-30 19:53] LABS: Absolute Lymphocyte Count 1.47 X10^3/uL (0.83-4.51); Absolute Neutrophil Count 5.9 X10^3/uL (2.0-7.7); Basophil# 0.03 X10^3/uL; Basophil% 0.4 % (0-1); Eosinophil# 0.07 X10^3/uL; Eosinophils% 0.8 % (0-5); Hematocrit 36.1 % (37-47); Hemoglobin 12.3 g/dL (12.0-15.0); Lymphocyte # 1.47 X10^3/ul (0.83-4.51); Lymphocyte % 17.7 % (19-41); Mean Corp Hgb Conc 34.1 g/dL (32-36); Mean Corpuscular Hgb 29.1 pg (27.0-32.0); Mean Corpuscular Volume 85.3 fL (81-99); Mean Platelet Vol. 9.1 fl (6.2-12.0); Monocyte% 8.4 % (0-10); NRBC Flagged by Analyzer 0 % (0-5); Neutrophil # 5.87 X10^3/uL (2.7-7.7); Neutrophil % 70.8 % (47-70); Platelet Count 292 K/mm3 (150-450); RBC Distribution Width CV 14.4 % (11.6-14.6); RBC Distribution Width SD 44.9 fl (35.1-43.9); Red Blood Count 4.23 M/mm3 (4.2-5.4); White Blood Count 8.3 K/mm3 (4.4-11.0)
[2021-04-30 20:07] LABS: Color, Urine Yellow (Yellow); Glucose, Dipstick Normal (Normal); Ketone-Dipstick Negative (Negative); Leukocyte Esterase-Dipstick Negative /ul (Negative); Nitrite-Dipstick Negative (Negative); Occult Blood-Urine Negative /ul (Negative); Protein-Dipstick Negative (Negative); Urine Bilirubin Dipstick Negative (Negative); Urine Clarity Clear (Clear); Urine Urobilinogen Normal (Normal); Urine pH 6.5 (5.0 - 8.0)
[2021-04-30 20:14] LABS: AST(SGOT) 27 U/L (15-37); Alanine Aminotransfer ALT/SGPT 32 U/L (13-56); Creatinine, Serum 0.79 mg/dL (0.55-1.02); EST Glomerular Filtration Rate 93 mL/min (>60); Est Glom Filt Rate - Afr Amer 113 mL/min (>60); Estimated Creatinine Clearance 92.37 ml/min; Uric Acid 4.4 mg/dL (2.6-6.0)
[2021-04-30 20:16] LABS: Squamous Epithelial Cells - UA 0-5 SEEN /hpf (5-10)
[2021-04-30 20:19] LABS: Protein, Urine (Random) 6.4 mg/dL (<11.9); Protein:Creat Ratio 421 mg/g CRE (0-200)
[2021-04-30 20:34] LABS: Amphetamine Urine VISTA NEGATIVE (<1000 ng/mL); Barbiturate Urine VISTA NEGATIVE (< 200 ng/mL); Benzodiazepine Urine VISTA NEGATIVE (< 200 ng/mL); Cocaine Urine VISTA NEGATIVE (< 300 ng/mL); Ecstacy Urine VISTA NEGATIVE (< 500 ng/mL); Methadone Urine VISTA NEGATIVE (< 300 ng/mL); PCP Urine VISTA NEGATIVE (< 25 ng/mL); THC Urine VISTA NEGATIVE (< 50 ng/mL); Vista UDS pH Range 6
[2021-04-30] MEDS: Oxytocin 30 units/NS 500 ml 30 UNITS/500 ML IV.SOLN IV (20:40)
[2021-04-30 22:14] LABS: HIV - WCH Non-Reactive (Nonreactive); Hepatitis B Surface Antigen Non-Reactive (Nonreactive); Hepatitis C Antibody Non-Reactive (Nonreactive)
[2021-05-01] VITALS (29 sets, daily range): BP systolic 117–149; BP diastolic 56–92; PULSE 68–110; RESP 16; TEMP 36.2–36.9; O2SAT 98–99
[2021-05-01] MEDS: Oxytocin 30 units/NS 500 ml 30 UNITS/500 ML IV.SOLN 334 UNITS IV (04:32)
--- NOTE | 2021-05-01 04:45 | OP.PCM_ITS ---
Assessment & Plan (1) : QUALIFIERS: Weeks of gestation: 38 weeks Qualified Code(s): Z3A.38 - 38 weeks gestation of COMMENT: Anatomy done 12/20/20; Urine cx, CBC, GCT, T&S, GC/C done NEEDS RUBELLA,RPR,HEPB,HEPC,HIV,TOX; GBS NEG (2) H/O delivery, currently : COMMENT: 35 weeks not on bj or progesterone. no document of baseline CL measurement. (3) H/O depression, currently : (4) Supervision of high risk , antepartum: COMMENT: JOHN: 05/05/21 PC: Jarred, Spouse: Hansel (5) Late care affecting : QUALIFIERS: Trimester: third trimester Qualified Code(s): O09.33 - Supervision of with insufficient care, third trimester (6) Mild pre-eclampsia: Maternal Data Information JOHN Calculator Estimated Delivery Date Method Current WG Current Estimate 05/05/21 LMP (Certain) 39w 3d Vaginal Delivery Maternal Presentation Maternal Presentation: Medically Indicated Induction Type of Induction: Pitocin Medical Reason for Induction: Preeclampsia, eclampsia Operative Information Date of Procedure: 05/01/21 Pre-Operative Diagnosis: 39 weeks with mild pre-eclampsia Post-Operative Diagnosis: 39 weeks with mild pre-eclampsia Type of Anesthesia: None Estimated Blood Loss: 200cc Findings Description of Procedure: Patient began pushing and delivered the head in the TERRANCE presentation. The head was delivered atraumatically . The anterior and posterior shoulders delivered without complication followed by the rest of the infant and the infant was placed on the maternal abdomen. Delayed cord clamping was employed for approximately 60 seconds. Cord was clamped and cut and gentle traction was applied to the cord and the placenta delivered spontaneously immediately following it was noted to be intact with three-vessel cord. The perineum and vagina were inspected and noted to have a 1st degree perineal laceration that was repaired using a 2-0 viryl suture. EBL was 200cc. Patient and tolerated delivery well. Presentation: Vertex Amniotic Fluid Description: Yellow Placental Delivery Description: Spontaneous Placenta Disposition: [facility] Cord Vessel Description: 3 Vessels Cord Entanglement: None A Gender: Female (1 minute): 8 (5 minute): 9 Delayed Cord Clamping: Yes Post Vaginal Delivery Medications Given After Delivery: IV Pitocin Episiotomy Description: None Laceration: 1st degree Complication Complications: None Multi Select Codes Urinary/Genital Urinary/Genital CPT Codes: 91247 Vaginal Delivery [facility]
[2021-05-01] MEDS: Acetaminophen 500 MG Tablet 1000 MG PO (05:21)
[2021-05-01 08:30] LABS: Syphilis Antibodies Non-reactive
[2021-05-01] MEDS: Ibuprofen 600 MG Tablet PO ×2 (12:48→20:09)
[2021-05-01] MEDS: Prenatal Vits Tablet 1 TABLET PO (12:48)
[2021-05-02 05:20] VITALS: BP 124/73; PULSE 91; RESP 16; TEMP 36.6; O2SAT 98
[2021-05-02 05:22] VITALS: BP 124/73; PULSE 89; PULSE 91; O2SAT 98
--- NOTE | 2021-05-02 08:47 | PN.OBGYN_ITS ---
Subjective Subjective Patient doing well without complaints. Tolerating PO. Ambulating and voiding without difficulty. infant feeding well. Denies chest pain, shortness of breath, calf pain/swelling, fevers, chills, lightheadedness. Objective Data Objective Data Vital Signs: Vital Signs Temp Pulse Resp BP Pulse Ox 98 F 89 16 124/73 H 98 05/02/21 05:20 05/02/21 05:22 05/02/21 05:20 05/02/21 05:22 05/02/21 05:22 Oxygen Delivery Method Room Air Weight: 164 lb 7.437 oz Body Mass Index (BMI) 28.2 Intake & Output: Intake and Output for Last 24 Hours 04/30/21 05/01/21 05/02/21 23:59 23:59 23:59 Intake Total 10.73 / 10.73 968.73 / 968.73 1720 / 1720 Output Total 300 / 300 Balance 10.73 / 10.73 668.73 / 668.73 1720 / 1720 Lab / Micro Data Result Diagrams: 04/30/21 19:30 04/30/21 19:30 Micro: Microbiology 04/30/21 18:44 Nasal Secretion SARS-CoV-2 Antigen (Rapid) - Final SARS-CoV-2 (COVID 19) ROS Constitutional Constitutional: Reports systems reviewed and no addt'l complaints, except as documented Cardiovascular Cardiovascular: Reports systems reviewed and no addt'l complaints, except as documented Respiratory/Chest Respiratory/Chest: Reports systems reviewed and no addt'l complaints, except as documented Gastrointestinal Gastrointestinal: Reports systems reviewed and no addt'l complaints, except as documented Physical Exam Const alert, oriented x3 and no apparent distress HEENT Head and Scalp: atraumatic Resp normal respiratory effort GI soft to palpation and non-tender Bimanual Exam - Vag & Uterus: uterus non-tender Uterus Palpation: uterus fundus firm (below Umbilicus) Assessment & Plan (1) COVID-19 virus RNA test result positive at limit of detection: (2) : QUALIFIERS: Weeks of gestation: 38 weeks Qualified Code(s): Z 3A.38 - 38 weeks gestation of COMMENT: Anatomy done 12/20/20; Urine cx, CBC, GCT, T&S, GC/C done NEEDS RUBELLA,RPR,HEPB,HEPC,HIV,TOX; GBS NEG (3) H/O delivery, currently : COMMENT: 35 weeks not on bj or progesterone. no document of baseline CL measurement. (4) H/O depression, currently : (5) Supervision of high risk , antepartum: COMMENT: JOHN: 05/05/21 PC: Jarred, Spouse: Hansel (6) Cystocele affecting : QUALIFIERS: Trimester: third trimester Qualified Code(s): O34.83 - Maternal care for other abnormalities of pelvic organs, third trimester; N8 1.10 - Cystocele, unspecified COMMENT: grade 2 (7) Late care affecting : QUALIFIERS: Trimester: third trimester Qualified Code(s): O09.33 - Supervision of with insufficient care, third trimester (8) Transient hypertension of : COMMENT: pressures normal in triage and normal pih labs (9) Mild pre-eclampsia: (10) Vaginal delivery: COMMENT: 39 jv IOL preeclampsia covid pos PLAN: routine care covid precautions dc home
--- NOTE | 2021-05-02 08:49 | DCINST_ITS ---
Discharge Instructions Diet Discharge Diet: No restrictions Activity Discharge Activity: Return to Normal Activity, May Not Drive (while taking narcotic pain medications.) and May Shower May resume sexual activity in: 4-6 weeks Dressing / Incision Call your doctor if your incision/area has: Continuous Slow Oozing, Sudden Increased Bleeding, Increased Pain/ Swelling, Increased Redness and Foul Smelling Discharge Follow Up Care Please Follow Up With: Gwen Caldera MD When: Call [phone] to make an appointment with your doctor in 6 weeks. If you had elevated blood pressure or 4th degree laceration, you will need to be seen in 2 weeks. Test Results: Test results from this visit will be discussed in further detail at your follow-up appointment, if applicable. Discharge Plan Admission Admit Date/Time: 04/30/21 17:45 Attending Provider: Dejah Swenson Primary Care Provider: Harpreet Coleman Discharge Orders/Prescriptions Prescriptions: No Action Vitamin 1 EACH tablet RF: 0 [place] 3 RF: 0 Vitamin D3 RF: 0 vitamin E RF: 0 B12 RF: 0 calcium RF: 0 Referrals / Follow Up: Harpreet Coleman DO [Primary Care Provider] - Disposition Disposition (needs filled in before D/C Order can be placed): Home, Self Care
[2021-05-02 10:30] VITALS: BP 135/72; PULSE 95; RESP 18; TEMP 36.6; O2SAT 97
[2021-05-02 10:38] VITALS: BP 135/72; PULSE 95
[2021-05-02 10:39] VITALS: PULSE 93; O2SAT 97
[2021-05-02] MEDS: Ibuprofen 600 MG Tablet PO (11:00)
== END 2021-05-02 13:15 | disposition home or self-care (01) | DRG 805 ==
PROVIDERS: Admitting Provider Obstetrics & Gynecology; PCP Family Medicine; Referring Provider Obstetrics & Gynecology; Visit Provider Obstetrics & Gynecology
DX: O14.04 Mild to moderate pre-eclampsia, complicating childbirth (principal); Z37.0 Single live birth; U07.1 COVID-19; O98.52 Other viral diseases complicating childbirth; O70.0 First degree perineal laceration during delivery; O34.83 Maternal care for other abnormalities of pelvic organs, third trimester; N81.10 Cystocele, unspecified; Z3A.39 39 weeks gestation of pregnancy
CPT/HCPCS: 59025; 59050; 80307; 81001; 82565; 82570; 84156; 84450; 84460; 84550; 85025; 86703; 86780; 86803; 86850; 86900; 86901; 87340; 87426; 87635; 99218; J7120; A4216; G0378; U0003; U0005